=== PATIENT | female | born 1970 | race Caucasian/White ===

== ENCOUNTER 2016-06-24 10:06 | Emergency (ER) | payer OTHER ==
--- NOTE | 2016-06-24 11:46 | ED NURSING NOTES ---
Clinical Report - Nurses [facility] [address] [place] [address] 06/24/2016 10:09 Patient: KHLOE HARDING TRIAGE Triage time 10:21. Acuity: LEVEL 3. Chief Complaint: BACK PAIN and (Pain goes up to neck and down both legs.). Alert. No acute distress. RYAN COMA SCORE: Ryan Coma Scale: 15- eyes open spontaneously (4); best verbal response- oriented x 4 (5); best motor response- obeys commands (6). --10:29 Makenna Healy R.N. 10:21 06/24/16. BP: 121/77. HR: 91. RR: 20. O2 saturation: 100%. Temp: 98.1 F. Pain level now: 11/27. --10:29 Makenna Healy R.N. 10:21 06/24/16. BP: 121/77. HR: 91. RR: 20. O2 saturation: 100%. Temp: 98.1 F. Pain level now: 11/27. --10:30 Makenna Healy R.N. Weight: 92 kg stated. Height/Length: 66 inches Per Patient. BMI: 32.8. --10:27 Makenna Healy R.N. Medications Levothyroxine Sodium Oral 88 mcg, daily. --10:23 Makenna Healy R.N. Flexeril 10mg prn . --10:24 Makenna Healy R.N. Bladder med . --10:24 Makenna Healy R.N. Stool softeners. --10:25 Makenna Healy R.N. Albuterol Sulfate HFA Inhalation, daily. --10:26 Makenna Healy R.N. PriLOSEC Oral, daily. --10:26 Makenna Healy R.N. Allergies PCN. --10:26 Makenna Healy R.N. History Arrived by private vehicle. Historian: patient. Accompanied by family. 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 Onset. (June 19 lifting heavy boxes.). She has had trouble walking. The patient has been limping when trying to walk. She has had right leg pain and left leg pain. No right arm pain or left arm pain. History of recent trauma- lifting injury. Occurred at home. No numbness or tingling. 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 PAST MEDICAL HX: Tetanus status: unknown. The patient has had a hysterectomy. SOCIAL HX: Never smoker. Occasional alcohol use. No drug use. FALL RISK ASSESSMENT: Fall risk assessment completed. No fall risk identified. NUTRITIONAL RISK ASSESSMENT: The nutritional risk assessment revealed no deficiencies. FUNCTIONAL ASSESSMENT: Functional assessment: no impairments noted. LEARNING NEEDS ASSESSMENT: The learning needs assessment revealed no barriers. SKIN INTEGRITY ASSESSMENT: Skin integrity risk assessment completed. No skin integrity risk identified. --10:29 Makenna Healy R.N. PROBLEMS: Asthma. Thyroid Disease. Greflux. --10:27 Makenna Healy R.N. ADDITIONAL SURGERIES: Adenoidectomy. Hysterectomy. Tonsillectomy. Tubal Ligation. --10:27 Makenna Healy R.N. Interventions ID band on patient. To room. --10:29 Makenna Healy R.N. PHYSICAL ASSESSMENT Ambulatory to room. Patient gowned. GENERAL / NEURO / PSYCH: Alert. Oriented X 4. Appears in pain and anxious. No numbness. RESPIRATORY: Respirations not labored. CVS: Capillary refill less than 2 seconds. GI / : Abdomen nontender. EXTREMITIES: Limited ROM present. Sensation intact in extremities. BACK: Limited ROM of the back. --10:30 Makenna Healy R.N. NURSING PROGRESS NOTES Cold pack applied. Patient gowned. Head of bed elevated. Two patient identifiers checked. Call light placed in reach. Side rails up x 2. Bed placed in lowest position. Brakes of bed on. Patient ready for evaluation- chart flagged. --10:30 Makenna Healy R.N. 10:59 06/24/2016 Percocet (Oxycodone-Acetaminophen) PO 5/325 mg Tablets 1 tab given. Allergies verified, confirmed 5 rights and sedative warning given to the patient. --11:04 Makenna Healy R.N. 11:41 06/24/16. BP: 122/79. HR: 76. RR: 20. O2 saturation: 100%. Temp: deferred. Pain level now: 06/27. --11:43 Makenna Healy R.N. 11:37 06/24/2016 Percocet (Oxycodone-Acetaminophen) PO 5/325 mg Tablets 1 tab given. Allergies verified, confirmed 5 rights and sedative warning given to the patient. --11:47 Makenna Healy R.N. DISPOSITION / DISCHARGE No learning barriers present. Discharge instructions provided and reviewed with the patient. Reviewed medication(s) side effects, precautions, dosing and course information. Prescription(s) given to the patient. Patient verbalized understanding. Written instructions provided in Malay. The patient was discharged home and accompanied by family. She left the Emergency Department ambulatory and via private vehicle. Family member driving. Medication list reviewed and validated. --11:55 Makenna Healy R.N. 11:41 06/24/16. BP: 122/79. HR: 76. RR: 20. O2 saturation: 100%. Temp: deferred. Pain level now: 06/27. 10:21 06/24/16. BP: 121/77. HR: 91. RR: 20. O2 saturation: 100%. Temp: 98.1 F. Pain level now: 11/27. --11:55 Makenna Healy R.N. Locked/Released at 06/24/2016 13:29 by Makenna Healy R.N.
--- NOTE | 2016-06-24 11:46 | ED ORDER SUMMARY ---
..... Patient: KHLOE HARDING OrderSheet [facility] VisitID: [id number] [address] [place] [address] 45y, F Registration Date/Time: 06/24/2016 ORDER SHEET Weight: 92.0 kg (stated) Allergies: PCN GENERAL ORDERS: MEDICATION ORDERS: Percocet PO 5/325 mg (HIGH ALERT MEDICATION, NOW) (10:55 06/24/2016 Lucas Quintanilla) (Ack 10:56 SRoberts R.N.) (11:04 SRoberts R.N.) Percocet PO 5/325 mg (back timed for 11:30 am) (11:46 06/24/2016 Lucas Quintanilla) (11:47 SRoberts R.N.) IV FLUIDS: ORDER SHEET NOTES: [Electronically signed by Makenna Healy R.N. (13:29 06/24/2016)] [Electronically signed by Neville Whyte Dr. (11:49 06/26/2016)] [Electronically locked/signed by Makenna Healy R.N. (13:29 06/24/2016)]
--- NOTE | 2016-06-24 11:46 | ED ORDER SUMMARY ---
..... Patient: KHLOE HARDING OrderSheet [facility] VisitID: [id number] [address] [place] [address] 45y, F Registration Date/Time: 06/24/2016 ORDER SHEET Weight: 92.0 kg (stated) Allergies: PCN GENERAL ORDERS: MEDICATION ORDERS: Percocet PO 5/325 mg (HIGH ALERT MEDICATION, NOW) (10:55 06/24/2016 Lucas Quintanilla) (Ack 10:56 SRoberts R.N.) (11:04 SRoberts R.N.) Percocet PO 5/325 mg (back timed for 11:30 am) (11:46 06/24/2016 Lucas Quintanilla) (11:47 SRoberts R.N.) IV FLUIDS: ORDER SHEET NOTES: [Electronically signed by Makenna Healy R.N. (13:29 06/24/2016)] [Electronically signed by Neville Whyte Dr. (11:49 06/26/2016)] [Electronically locked/signed by Makenna Healy R.N. (13:29 06/24/2016)]
--- NOTE | 2016-06-24 11:46 | ED CLINICAL REPORT ---
Clinical Report - Physicians/Mid Levels [facility] [address] [place] [address] 06/24/2016 10:09 Patient: KHLOE HARDING Time Seen: 1040. Arrived- By private vehicle. Historian- patient. HISTORY OF PRESENT ILLNESS Chief Complaint: BACK PAIN. It is described as being severe and radiating to the neck, upper back and low back. The quality is noted to be sharp and aching. Quality not similar to prior episodes. Modifying factors. (worse with movement, better with rest). Onset- 5 days ago and it is still present (unchanged). It was abrupt in onset and has been constant but is not gone now. No bladder dysfunction, bowel dysfunction, sensory loss or motor loss. Additional history - no hx of iV drug use, saddle anesthesia, or urinary retention. Patient notes the possibility of an injury but denies injury to the head. 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 Similar symptoms previously: None. Recent medical care: The patient was seen recently in a clinic. ( prescribed ibuprofen and flexaril. has not helped, per patient.). REVIEW OF SYSTEMS No fever, skin rash, headache, difficulty breathing or chest pain. All systems otherwise negative, except as recorded above. PAST HISTORY See nurses notes. SOCIAL HISTORY Never smoker. No alcohol use or drug use. No recent travel. Is a local resident. ADDITIONAL NOTES The nursing notes have been reviewed. PHYSICAL EXAM Vital Signs: 06/24/2016 10:21 BP: 121/77. HR: 91. RR: 20. O2 saturation: 100%. Temp: 98.1 F. Pain level now: 10/10. Blood pressure normal. Oxygen saturation normal. Appearance: Alert. No acute distress. HEENT: Normal external inspection. Eyes: Pupils equal, round and reactive to light. ENT: Ears normal. Pharynx normal. Neck: Normal inspection. Neck nontender. No muscle spasm or decreased ROM in the neck. Painless ROM. No vertebral tenderness. No lymphadenopathy or meningeal signs. (moved head an neck without discomfort at the bedside.). CVS: Heart sounds normal. Pulses normal. Respiratory: No respiratory distress. Breath sounds normal. Abdomen: No visible injury. Soft and nontender. Bowel sounds normal. Back: No vertebral point tenderness. (bilateral paraspinal muscle tenderness. no overlying skin changes. no creptitus. no chris abnormalities. compartments soft.). Skin: Skin warm and dry. Normal skin color. No rash. Normal skin turgor. Extremities: Extremities exhibit normal ROM. Extremities nontender. Neuro: Oriented X 3. Mood/affect normal. No motor deficit. No sensory deficit. PROGRESS AND PROCEDURES Course of Care: The patient is a pleasant 45-year-old female with no past medical history presenting free and back pain. Patient has no red flags for back pain on examination or history. Had a discussion with the patient in regards towork appearing emergency department and potential evaluations. Patient had requested or consideredobtaining imaging of the patient's back. Patient current guidelines, had a discussion patient in regards to back pain and imaging. Discussed therisks outweigh the benefits for imaging at this time however would consider having these tests performed if her pain is not improved with treatments here in the emergency department. Patient was eventually agreeable to this. We will evaluate the patient after the medication is given some time for it to take effect. Patient was reevaluated and found to have significant improvement with her pain. Patient reports thatthe pain went down from a 10 out of 10 in severity to 5 out of 10 severity. He doesn't this, again had discussion with patient in regards to imaging. At this time she feels that this is not necessary. Also agree with this recommendation given current guidelines. Patient however did state that she would like another dose of pain medication. Patient was given one Percocet and another Percocet has been ordered. Patient continues to be neurovascular intact. No signs of cord compromise. Had a discussion patient in regards to back pain includingreasons to return to the emergency departmentas well as diagnosis, home care, follow-up. All questions have been answered. The patient expressed understanding of these instructions and was agreeable to them. Disposition: Discharged. Condition: good. CLINICAL IMPRESSION 06/24/2016 10:21 BP: 121/77. HR: 91. RR: 20. O2 saturation: 100%. Temp: 98.1 F. Pain level now: 10/10. Blood pressure normal. Oxygen saturation normal. Acute myofascial strain (acute). INSTRUCTIONS Warnings: GENERAL WARNINGS: Return or contact your physician immediately if your condition worsens or changes unexpectedly, if not improving as expected, or if other problems arise. SPECIFICALLY, return if you develop weakness, numbness, tingling, pain or incontinence. Your Current Medications: CONTINUE TAKING THE FOLLOWING MEDICATIONS: Albuterol Sulfate HFA Inhalation : daily. Bladder med *. Flexeril 10mg prn *. Levothyroxine Sodium Oral : 88 mcg daily. PriLOSEC Oral : daily. Stool softeners*. Prescription Medications: Percocet 5 mg/325 mg: take 1-2 tablets orally every 6 hours as needed for pain. Dispense fifteen (15). No refill. Substitution is permissible. Follow-up: Return to the emergency department as needed. Follow up with your doctor in three days. Reason for referral: recheck today's concerns. Summary of care provided to patient via paper. Screening today revealed the patient's blood pressure to be in the normal range. The patient should follow up with a primary care provider for blood pressure management. Understanding of the discharge instructions verbalized by patient. (Electronically signed by Neville Whyte Dr. 06/26/2016 11:49)
--- NOTE | 2016-06-24 11:46 | ED NURSING NOTES ---
Clinical Report - Nurses [facility] [address] [place] [address] 06/24/2016 10:09 Patient: KHLOE HARDING TRIAGE Triage time 10:21. Acuity: LEVEL 3. Chief Complaint: BACK PAIN and (Pain goes up to neck and down both legs.). Alert. No acute distress. RYAN COMA SCORE: Ryan Coma Scale: 15- eyes open spontaneously (4); best verbal response- oriented x 4 (5); best motor response- obeys commands (6). --10:29 Makenna Healy R.N. 10:21 06/24/16. BP: 121/77. HR: 91. RR: 20. O2 saturation: 100%. Temp: 98.1 F. Pain level now: 11/27. --10:29 Makenna Healy R.N. 10:21 06/24/16. BP: 121/77. HR: 91. RR: 20. O2 saturation: 100%. Temp: 98.1 F. Pain level now: 11/27. --10:30 Makenna Healy R.N. Weight: 92 kg stated. Height/Length: 66 inches Per Patient. BMI: 32.8. --10:27 Makenna Healy R.N. Medications Levothyroxine Sodium Oral 88 mcg, daily. --10:23 Makenna Healy R.N. Flexeril 10mg prn . --10:24 Makenna Healy R.N. Bladder med . --10:24 Makenna Healy R.N. Stool softeners. --10:25 Makenna Healy R.N. Albuterol Sulfate HFA Inhalation, daily. --10:26 Makenna Healy R.N. PriLOSEC Oral, daily. --10:26 Makenna Healy R.N. Allergies PCN. --10:26 Makenna Healy R.N. History Arrived by private vehicle. Historian: patient. Accompanied by family. 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 Onset. (June 19 lifting heavy boxes.). She has had trouble walking. The patient has been limping when trying to walk. She has had right leg pain and left leg pain. No right arm pain or left arm pain. History of recent trauma- lifting injury. Occurred at home. No numbness or tingling. 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 PAST MEDICAL HX: Tetanus status: unknown. The patient has had a hysterectomy. SOCIAL HX: Never smoker. Occasional alcohol use. No drug use. FALL RISK ASSESSMENT: Fall risk assessment completed. No fall risk identified. NUTRITIONAL RISK ASSESSMENT: The nutritional risk assessment revealed no deficiencies. FUNCTIONAL ASSESSMENT: Functional assessment: no impairments noted. LEARNING NEEDS ASSESSMENT: The learning needs assessment revealed no barriers. SKIN INTEGRITY ASSESSMENT: Skin integrity risk assessment completed. No skin integrity risk identified. --10:29 Makenna Healy R.N. PROBLEMS: Asthma. Thyroid Disease. Greflux. --10:27 Makenna Healy R.N. ADDITIONAL SURGERIES: Adenoidectomy. Hysterectomy. Tonsillectomy. Tubal Ligation. --10:27 Makenna Healy R.N. Interventions ID band on patient. To room. --10:29 Makenna Healy R.N. PHYSICAL ASSESSMENT Ambulatory to room. Patient gowned. GENERAL / NEURO / PSYCH: Alert. Oriented X 4. Appears in pain and anxious. No numbness. RESPIRATORY: Respirations not labored. CVS: Capillary refill less than 2 seconds. GI / : Abdomen nontender. EXTREMITIES: Limited ROM present. Sensation intact in extremities. BACK: Limited ROM of the back. --10:30 Makenna Healy R.N. NURSING PROGRESS NOTES Cold pack applied. Patient gowned. Head of bed elevated. Two patient identifiers checked. Call light placed in reach. Side rails up x 2. Bed placed in lowest position. Brakes of bed on. Patient ready for evaluation- chart flagged. --10:30 Makenna Healy R.N. 10:59 06/24/2016 Percocet (Oxycodone-Acetaminophen) PO 5/325 mg Tablets 1 tab given. Allergies verified, confirmed 5 rights and sedative warning given to the patient. --11:04 Makenna Healy R.N. 11:41 06/24/16. BP: 122/79. HR: 76. RR: 20. O2 saturation: 100%. Temp: deferred. Pain level now: 06/27. --11:43 Makenna Healy R.N. 11:37 06/24/2016 Percocet (Oxycodone-Acetaminophen) PO 5/325 mg Tablets 1 tab given. Allergies verified, confirmed 5 rights and sedative warning given to the patient. --11:47 Makenna Healy R.N. DISPOSITION / DISCHARGE No learning barriers present. Discharge instructions provided and reviewed with the patient. Reviewed medication(s) side effects, precautions, dosing and course information. Prescription(s) given to the patient. Patient verbalized understanding. Written instructions provided in Kinyarwanda. The patient was discharged home and accompanied by family. She left the Emergency Department ambulatory and via private vehicle. Family member driving. Medication list reviewed and validated. --11:55 Makenna Healy R.N. 11:41 06/24/16. BP: 122/79. HR: 76. RR: 20. O2 saturation: 100%. Temp: deferred. Pain level now: 06/27. 10:21 06/24/16. BP: 121/77. HR: 91. RR: 20. O2 saturation: 100%. Temp: 98.1 F. Pain level now: 11/27. --11:55 Makenna Healy R.N. Locked/Released at 06/24/2016 13:29 by Makenna Healy R.N.
--- NOTE | 2016-06-26 11:49 | ED MAR SUMMARY ---
..... Medication Administration Record [facility] [address] [place] [address] Patient: KHLOE HARDING Visit ID: [id number] 45y, F Weight: 92.0 kg Height/Length: 66 in BMI: 32.8 ALLERGIES: PCN Given 10:59 06/24/2016 Makenna Healy R.N. Medication Administered: PERCOCET [PO] (OXYCODONE-ACETAMINOPHEN), Dose: 1 tab 5/325 mg Tablets PO. Medication Ordered: Percocet PO 5/325 mg (HIGH ALERT MEDICATION, NOW). Given 11:37 06/24/2016 Makenna Healy R.N. Medication Administered: PERCOCET [PO] (OXYCODONE-ACETAMINOPHEN), Dose: 1 tab 5/325 mg Tablets PO. Medication Ordered: Percocet PO 5/325 mg (back timed for 11:30 am).
--- NOTE | 2016-06-26 11:49 | ED DISCHARGE INSTRUCTIONS ---
Patient: KHLOE HARDING General Instructions [facility] VisitID: [id number] [address] [place] [address] 45y, F Registration Date/Time: 06/24/2016 06/24/2016 10:21 BP: 121/77. HR: 91. RR: 20. O2 saturation: 100%. Temp: 98.1 F. Pain level now: 11/27. Blood pressure normal. Oxygen saturation normal. Acute myofascial strain (acute). INSTRUCTIONS Warnings: GENERAL WARNINGS: Return or contact your physician immediately if your condition worsens or changes unexpectedly, if not improving as expected, or if other problems arise. SPECIFICALLY, return if you develop weakness, numbness, tingling, pain or incontinence. Your Current Medications: CONTINUE TAKING THE FOLLOWING MEDICATIONS: Albuterol Sulfate HFA Inhalation : daily. Bladder med *. Flexeril 10mg prn *. Levothyroxine Sodium Oral : 88 mcg daily. PriLOSEC Oral : daily. Stool softeners*. Prescription Medications: Percocet 5 mg/325 mg: take 1-2 tablets orally every 6 hours as needed for pain. Dispense fifteen (15). No refill. Substitution is permissible. Follow-up: Return to the emergency department as needed. Follow up with your doctor in three days. Reason for referral: recheck today's concerns. Summary of care provided to patient via paper. Screening today revealed the patient's blood pressure to be in the normal range. The patient should follow up with a primary care provider for blood pressure management. Understanding of the discharge instructions verbalized by patient. ADDITIONAL INFORMATION Back Pain [Acute Or Chronic] Back pain is usually caused by an injury to the muscles or ligaments of the spine. Sometimes the disks that separate each bone in the spine may bulge and cause pain by pressing on a nearby nerve. Back pain may also appear after a sudden twisting/bending force (such as in a car accident), after a simple awkward movement, or lifting something heavy with poor body positioning. In either case, muscle spasm is often present and adds to the pain. Acute back pain usually gets better in one to two weeks. Back pain related to disk disease, arthritis in the spinal joints or spinal stenosis (narrowing of the spinal canal) can become chronic and last for months or years. Unless you had a physical injury (for example, a car accident or fall) X-rays are usually not ordered for the initial evaluation of back pain. If pain continues and does not respond to medical treatment, x-rays and other tests may be performed at a later time. Home Care: You may need to stay in bed the first few days. But, as soon as possible, begin sitting or walking to avoid problems with prolonged bed rest (muscle weakness, worsening back stiffness and pain, blood clots in the legs). When in bed, try to find a position of comfort. A firm mattress is best. Try lying flat on your back with pillows under your knees. You can also try lying on your side with your knees bent up towards your chest and a pillow between your knees. Avoid prolonged sitting. This puts more stress on the lower back than standing or walking. During the first two days after injury, apply an ICE PACK to the painful area for 20 minutes every 2-4 hours. This will reduce swelling and pain. HEAT (hot shower, hot bath or heating pad) works well for muscle spasm. You can start with ice, then switch to heat after two days. Some patients feel best alternating ice and heat treatments. Use the one method that feels the best to you. You may use acetaminophen (Tylenol) or ibuprofen (Motrin, Advil) to control pain, unless another pain medicine was prescribed. [NOTE: If you have chronic liver or kidney disease or ever had a stomach ulcer or GI bleeding, talk with your doctor before using these medicines.] Be aware of safe lifting methods and do not lift anything over 15 pounds until all the pain is gone. Follow Up with your doctor or this facility if your symptoms do not start to improve after one week. Physical therapy may be needed. [NOTE: If X-rays were taken, they will be reviewed by a radiologist. You will be notified of any new findings that may affect your care.] Get Prompt Medical Attention if any of the following occur: Pain becomes worse or spreads to your legs Weakness or numbness in one or both legs Loss of bowel or bladder control Numbness in the groin or genital area Oxycodone Hydrochloride, Acetaminophen Oral tablet What is this medicine? ACETAMINOPHEN; OXYCODONE (a set a MARIO isadora fen; ox i KOE done) is a pain reliever. It is used to treat mild to moderate pain. How should I use this medicine? Take this medicine by mouth with a full glass of water. Follow the directions on the prescription label. Take your medicine at regular intervals. Do not take your medicine more often than directed. Talk to your preboarder regarding the use of this medicine in children. Special care may be needed. Patients over 65 years old may have a stronger reaction and need a smaller dose. What side effects may I notice from receiving this medicine? Side effects that you should report to your doctor or health patient centered care specialist as soon as possible: allergic reactions like skin rash, itching or hives, swelling of the face, lips, or tongue breathing difficulties, wheezing confusion light headedness or fainting spells severe stomach pain yellowing of the skin or the whites of the eyes Side effects that usually do not require medical attention (report to your doctor or health patient centered care specialist if they continue or are bothersome): dizziness drowsiness nausea vomiting What may interact with this medicine? alcohol antihistamines barbiturates like amobarbital, butalbital, butabarbital, methohexital, pentobarbital, phenobarbital, thiopental, and secobarbital benztropine drugs for bladder problems like solifenacin, trospium, oxybutynin, tolterodine, hyoscyamine, and methscopolamine drugs for breathing problems like ipratropium and tiotropium drugs for certain stomach or intestine problems like propantheline, homatropine methylbromide, glycopyrrolate, atropine, belladonna, and dicyclomine general anesthetics like etomidate, ketamine, nitrous oxide, propofol, desflurane, enflurane, halothane, isoflurane, and sevoflurane medicines for depression, anxiety, or psychotic disturbances medicines for sleep muscle relaxants naltrexone narcotic medicines (opiates) for pain phenothiazines like perphenazine, thioridazine, chlorpromazine, mesoridazine, fluphenazine, prochlorperazine, promazine, and trifluoperazine scopolamine tramadol trihexyphenidyl What if I miss a dose? If you miss a dose, take it as soon as you can. If it is almost time for your next dose, take only that dose. Do not take double or extra doses. Where should I keep my medicine? Keep out of the reach of children. This medicine can be abused. Keep your medicine in a safe place to protect it from theft. Do not share this medicine with anyone. Selling or giving away this medicine is dangerous and against the law. Store at room temperature between 20 and 25 degrees C (68 and 77 degrees F). Keep container tightly closed. Protect from light. This medicine may cause accidental overdose and if it is taken by other adults, children, or pets. Flush any unused medicine down the toilet to reduce the chance of harm. Do not use the medicine after the expiration date. What should I tell my health care provider before I take this medicine? They need to know if you have any of these conditions: brain tumor Crohn's disease, inflammatory bowel disease, or ulcerative colitis drink more than 3 alcohol containing drinks per day drug abuse or addiction head injury heart or circulation problems kidney disease or problems going to the bathroom liver disease lung disease, asthma, or breathing problems an unusual or allergic reaction to acetaminophen, oxycodone, other opioid analgesics, other medicines, foods, dyes, or preservatives or trying to get breast-feeding What should I watch for while using this medicine? Tell your doctor or health patient centered care specialist if your pain does not go away, if it gets worse, or if you have new or a different type of pain. You may develop tolerance to the medicine. Tolerance means that you will need a higher dose of the medication for pain relief. Tolerance is normal and is expected if you take this medicine for a long time. Do not suddenly stop taking your medicine because you may develop a severe reaction. Your body becomes used to the medicine. This does NOT mean you are addicted. Addiction is a behavior related to getting and using a drug for a non-medical reason. If you have pain, you have a medical reason to take pain medicine. Your doctor will tell you how much medicine to take. If your doctor wants you to stop the medicine, the dose will be slowly lowered over time to avoid any side effects. You may get drowsy or dizzy. Do not drive, use machinery, or do anything that needs mental alertness until you know how this medicine affects you. Do not stand or sit up quickly, especially if you are an older patient. This reduces the risk of dizzy or fainting spells. Alcohol may interfere with the effect of this medicine. Avoid alcoholic drinks. There are different types of narcotic medicines (opiates) for pain. If you take more than one type at the same time, you may have more side effects. Give your health care provider a list of all medicines you use. Your doctor will tell you how much medicine to take. Do not take more medicine than directed. Call emergency for help if you have problems breathing. The medicine will cause constipation. Try to have a bowel movement at least every 2 to 3 days. If you do not have a bowel movement for 3 days, call your doctor or health patient centered care specialist. Do not take Tylenol (acetaminophen) or medicines that have acetaminophen with this medicine. Too much acetaminophen can be very dangerous. Many nonprescription medicines contain acetaminophen. Always read the labels carefully to avoid taking more acetaminophen. You have been given the following additional information: Back Pain (Acute Or Chronic) Oxycodone Hydrochloride, Acetaminophen Oral tablet (Electronically signed by Neville Whyte Dr. 06/26/2016 11:49)
--- NOTE | 2016-06-26 11:49 | ED MED RECONCILIATION SUMMARY ---
Patient: KHLOE HARDING Medication Reconciliation Report [facility] VisitID: [id number] [address] [place] [address] 45y, F Registration Date/Time: 06/24/2016 Weight: 92.0 kg Height/Length: 66 in. BMI: 32.8 ALLERGIES: PCN The patient's Home Medications are listed below: CONTINUE TAKING THE FOLLOWING MEDICATIONS: Albuterol Sulfate HFA Inhalation, daily Bladder med Flexeril 10mg prn Levothyroxine Sodium Oral 88 mcg, daily PriLOSEC Oral, daily Stool softeners The source(s) of the original Home Medication information: Not obtained. The following Medications were given to the patient in the Emergency Department: Percocet [PO] PO 1 tab, administered: 06/24/2016 10:59:00 AM Percocet [PO] PO 1 tab, administered: 06/24/2016 11:37:00 AM The following Medications were prescribed to the patient: Percocet 5 mg/325 mg: take 1-2 tablets orally every 6 hours as needed for pain. Dispense fifteen (15). No refill. Substitution is permissible. -- Neville Whyte Dr.
--- NOTE | 2016-06-26 11:49 | ED MAR SUMMARY ---
..... Medication Administration Record [facility] [address] [place] [address] Patient: KHLOE HARDING Visit ID: [id number] 45y, F Weight: 92.0 kg Height/Length: 66 in BMI: 32.8 ALLERGIES: PCN Given 10:59 06/24/2016 Makenna Healy R.N. Medication Administered: PERCOCET [PO] (OXYCODONE-ACETAMINOPHEN), Dose: 1 tab 5/325 mg Tablets PO. Medication Ordered: Percocet PO 5/325 mg (HIGH ALERT MEDICATION, NOW). Given 11:37 06/24/2016 Makenna Healy R.N. Medication Administered: PERCOCET [PO] (OXYCODONE-ACETAMINOPHEN), Dose: 1 tab 5/325 mg Tablets PO. Medication Ordered: Percocet PO 5/325 mg (back timed for 11:30 am).
--- NOTE | 2016-06-26 11:49 | ED MED RECONCILIATION SUMMARY ---
Patient: KHLOE HARDING Medication Reconciliation Report [facility] VisitID: [id number] [address] [place] [address] 45y, F Registration Date/Time: 06/24/2016 Weight: 92.0 kg Height/Length: 66 in. BMI: 32.8 ALLERGIES: PCN The patient's Home Medications are listed below: CONTINUE TAKING THE FOLLOWING MEDICATIONS: Albuterol Sulfate HFA Inhalation, daily Bladder med Flexeril 10mg prn Levothyroxine Sodium Oral 88 mcg, daily PriLOSEC Oral, daily Stool softeners The source(s) of the original Home Medication information: Not obtained. The following Medications were given to the patient in the Emergency Department: Percocet [PO] PO 1 tab, administered: 06/24/2016 10:59:00 AM Percocet [PO] PO 1 tab, administered: 06/24/2016 11:37:00 AM The following Medications were prescribed to the patient: Percocet 5 mg/325 mg: take 1-2 tablets orally every 6 hours as needed for pain. Dispense fifteen (15). No refill. Substitution is permissible. -- Neville Whyte Dr.
== END 2016-06-24 11:50 | disposition home or self-care (01) ==
LOC: ED SRH 10:06
DX: S29.012A Strain of muscle and tendon of back wall of thorax, initial encounter (principal); X50.0XXA Overexertion from strenuous movement or load, initial encounter; Y93.9 Activity, unspecified; Y92.009 Unspecified place in unspecified non-institutional (private) residence as the place of occurrence of the external cause; Z88.0 Allergy status to penicillin; Y99.9 Unspecified external cause status; J45.909 Unspecified asthma, uncomplicated; E07.9 Disorder of thyroid, unspecified; K21.9 Gastro-esophageal reflux disease without esophagitis; Z79.899 Other long term (current) drug therapy